=== PATIENT | female | born 2000 | race Caucasian/White ===

== ENCOUNTER 2024-01-19 19:54 | Emergency (ER) | payer OTHER ==
[~2024-01-19] VITALS: Ht 152.4 cm; Wt 165.0 kg
[2024-01-19 20:42] LABS: BASO % 0.5 % (0.0-1.0); EOS # 0.1 10^3/uL (0.0-0.5); EOS % 1.5 % (0.0-3.0); HEMATOCRIT 36.7 % (36.0-47.0); HEMOGLOBIN 12.2 g/dl (12.0-15.5); LYMPH # 2.9 10^3/uL (1.5-5.0); LYMPH % 38.9 % (24.0-44.0); MEAN CORPUSCULAR HEMOGLOBIN 28.7 pg (27.0-33.0); MEAN CORPUSCULAR HGB CONC 33.2 g/dl (32.0-36.5); MEAN CORPUSCULAR VOLUME 86.4 fl (80.0-96.0); MONO # 0.5 10^3/uL (0.0-0.8); MONO % 7.2 % (2.0-8.0); NEUTROPHILS # 3.9 10^3/uL (1.5-8.5); NEUTROPHILS % 51.6 % (36.0-66.0); PLATELET COUNT, AUTOMATED 326 10^3/uL (150-450); RED BLOOD COUNT 4.25 10^6/uL (4.00-5.40); WHITE BLOOD COUNT 7.5 10^3/uL (4.0-10.0)
[2024-01-19 21:06] LABS: LIPASE 30 U/L (12-53)
[2024-01-19 21:09] LABS: ALBUMIN 3.7 G/DL (3.2-5.2); ALKALINE PHOSPHATASE 76 U/L (46-116); ALT/SGPT 15 U/L (7.0-40); AST/SGOT 12 U/L (<34); BILIRUBIN,DIRECT < 0.1 MG/DL (<0.4); BILIRUBIN,TOTAL 0.3 MG/DL (0.3-1.2); BLOOD UREA NITROGEN 10 MG/DL (9-23); CALCIUM LEVEL 8.6 MG/DL (8.5-10.1); CARBON DIOXIDE LEVEL 26 MMOL/L (20-31); CHLORIDE LEVEL 108 MMOL/L (98-107); GLOMERULAR FILTRATION RATE > 60.0 (>60); GLUCOSE, FASTING 89 MG/DL (60-100); SODIUM LEVEL 139 MMOL/L (136-145); TOTAL PROTEIN 6.5 G/DL (5.7-8.2)
[2024-01-19 21:22] LABS: HCG, SERUM QUALITATIVE NEGATIVE (NEGATIVE)
[2024-01-20] MEDS: ONDANSETRON 4MG 2ML VIAL IV ONE (01:29)
[2024-01-20] MEDS: KETOROLAC 30 MG/ML 1ML VIAL IV ONE (01:29)
[2024-01-20] MEDS: NS 1,000 ML IV ONE (01:29)
[2024-01-20] MEDS ORDERED: KETO10TAB PO (01:57)
[2024-01-20] MEDS ORDERED: ONDA4TAB6 PO (01:57)
[2024-01-20 02:05] VITALS: BP 119/78; TEMP 98.1; O2SAT 100
== END 2024-01-20 02:18 | disposition home or self-care (01) ==
LOC: M ED 19:54
DX: R10.11 Right upper quadrant pain (principal); Z79.899 Other long term (current) drug therapy
CPT/HCPCS: 74018; 80048; 80076; 83690; 84703; 85025; 96361; 96374; 99284; J1885; J2405